=== PATIENT | female | born 1985 | race Two or more races ===

== ENCOUNTER 2017-03-08 04:26 | Emergency (ER) | payer MEDICAID ==
[~2017-03-08] VITALS: Ht 162.6 cm; Wt 70.3 kg
[2017-03-08] MEDS ORDERED: ONDANSETRON HCL 4 MG/2 ML VIAL IV ONE (05:00)
[2017-03-08 05:21] LABS: Basophils # (auto) 0 uL; Basophils % (auto) 0.5 % (0.0-2.0); CONDITION Y; Eosinophils # (auto) 0.1 uL; Eosinophils % (auto) 1.2 % (0.0-7.0); Hematocrit 37.4 % (36.0-46.0); Hemoglobin 12.7 g/dL (12.2-16.2); Lymphocytes # (auto) 1.5 uL; Lymphocytes % (auto) 20.4 % (10.0-50.0); Mean Corpuscular Hemoglobin 28.6 pg (28.0-32.0); Mean Corpuscular Hgb Conc. 33.9 g/dL (32.0-36.0); Mean Corpuscular Volume 84.5 fL (80.0-100.0); Mean Platelet Volume 8.3 fL (6.9-10.8); Monocytes # (auto) 0.4 uL; Monocytes % (auto) 4.9 % (0.0-12.0); Neutrophils # (auto) 5.5 uL; Platelet Count (auto) 463 10^3/uL (140-450); Red Cell Distribution Width 13.5 % (11.8-14.3); White Blood Cell 7.5 10^3/uL (4.4-10.8)
[2017-03-08 05:29] LABS: Urine Bilirubin Negative (Negative); Urine Blood TRACE /uL (Negative); Urine Color Yellow (Yellow); Urine Glucose Normal (Normal); Urine Ketone 1+ (Negative); Urine Mucus FEW (None Seen); Urine Nitrite Negative (Negative); Urine RBC 17 /hpf (0 - 4); Urine Squamous Epithelial Cell FEW /hpf (<5); Urine pH 7.5 (5.0-8.0)
[2017-03-08 05:55] LABS: Albumin 4.1 g/dL (3.4-5.0); BUN/Creatinine Ratio 15.6; Bilirubin, Total 1.4 mg/dL (0.2-1.0); Calcium 9.2 mg/dL (8.5-10.1); Magnesium 2.2 mg/dL (1.6-2.6); Potassium 3.4 mmol/L (3.5-5.1); Total Protein 7.9 g/dL (6.4-8.2)
[2017-03-08 06:22] VITALS: BP 134/88
[2017-03-08] MEDS ORDERED: KETOROLAC TROMETH 30 MG/ML 1ML VIAL IV ONE (07:15)
== END 2017-03-08 07:58 | disposition home or self-care (01) ==
LOC: ER 04:35
DX: N83.00 Follicular cyst of ovary, unspecified side (principal); Z87.442 Personal history of urinary calculi
CPT/HCPCS: 36415; 76830; 76856; 80053; 81001; 82150; 83690; 83735; 84702; 85025; 96374; 96375; 99285; J1885; J2405; J7030

== ENCOUNTER 2017-03-08 20:50 | Emergency (ER) | payer MEDICAID ==
[~2017-03-08] VITALS: Ht 162.6 cm; Wt 70.3 kg
[2017-03-08] MEDS ORDERED: ONDANSETRON HCL 4 MG/2 ML VIAL IV ONE (21:15)
[2017-03-08] MEDS ORDERED: SODIUM CHLORIDE 0.9% 1,000 ML IV ONE (21:15)
[2017-03-08] MEDS ORDERED: HYDROmorphone HCL 2 MG/ML VL IV ONE (21:15)
[2017-03-08] MEDS ORDERED: PROMETHAZINE HCL 25 MG/ML 1ML IV ONE (21:45)
[2017-03-08 23:29] LABS: Urine Bilirubin Negative (Negative); Urine Blood TRACE /uL (Negative); Urine Color Yellow (Yellow); Urine Glucose Normal (Normal); Urine Ketone 2+ (Negative); Urine Mucus FEW (None Seen); Urine Nitrite Negative (Negative); Urine RBC 12 /hpf (0 - 4); Urine Squamous Epithelial Cell MOD /hpf (<5); Urine Urobilinogen Normal (Negative)
[2017-03-09] MEDS ORDERED: MAGNESIUM CITRATE SOLUTION 300 ML BTL PO ONE (03:15)
[2017-03-09] MEDS ORDERED: HYDROcodone-ACET 10/325MG TAB PO ONE (04:30)
[2017-03-09 04:40] VITALS: BP 117/62
== END 2017-03-09 04:30 | disposition home or self-care (01) ==
LOC: ER 20:50 → EDBD 20:50 → ER 03-09 04:27
DX: N20.0 Calculus of kidney (principal); N39.0 Urinary tract infection, site not specified; K59.00 Constipation, unspecified; F12.10 Cannabis abuse, uncomplicated
CPT/HCPCS: 74176; 81001; 81025; 96361; 96374; 96375; 99285; J1170; J2405; J2550; J7030

== ENCOUNTER 2022-10-13 21:23 | Emergency (ER) | payer MEDICAID | END 2022-10-13 21:54 | disposition left against medical advice (07) | LOC: ER 21:23 | DX: R11.2 Nausea with vomiting, unspecified (principal); Z53.21 Procedure and treatment not carried out due to patient leaving prior to being seen by health care provider ==

== ENCOUNTER 2025-01-02 16:02 | Emergency (ER) | payer MEDICAID ==
[~2025-01-02] VITALS: Ht 165.1 cm; Wt 74.0 kg
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
[2025-01-02 16:41] VITALS: RESP 18; O2SAT 98
[2025-01-02] MEDS: HYDROcodone-ACET 5/325MG TAB PO ONE (16:45)
[2025-01-02] MEDS: ONDANSETRON ODT 4 MG TAB PO ONE (16:46)
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
[2025-01-02] MEDS ORDERED: BACL10TA PO (17:39)
[2025-01-02] MEDS ORDERED: IBUP-1455 PO (17:39)
[2025-01-02 17:55] VITALS: BP 124/81; PULSE 107; RESP 17; TEMP 98.9; O2SAT 94
== END 2025-01-02 18:04 | disposition home or self-care (01) ==
LOC: ER 16:02 → EDBD 16:02 → EDUNIT# 16:02 → ER 18:04
DX: S80.01XA Contusion of right knee, initial encounter (principal); V89.2XXA Person injured in unspecified motor-vehicle accident, traffic, initial encounter; Y93.89 Activity, other specified; Y92.488 Other paved roadways as the place of occurrence of the external cause; Y99.8 Other external cause status
CPT/HCPCS: 73562; 99283; Q0162